=== PATIENT | male | born 1950 | race Caucasian/White ===

== ENCOUNTER 2020-02-12 14:06 | Outpatient (REF) | payer MEDICARE, SELFPAY ==
[2020-02-12 17:09] LABS: Prostate Specific Antigen < 0.05 ng/mL (<0.05-4.0)
== END 2020-02-12 14:07 | disposition home or self-care (01) ==
LOC: HO.HMGCLDS 14:06
PROVIDERS: PCP Internal Medicine; Visit Provider Urology
DX: C61 Malignant neoplasm of prostate (principal)
CPT/HCPCS: 84153

== ENCOUNTER 2020-05-14 07:34 | Outpatient (REF) | payer MEDICARE, SELFPAY ==
[2020-05-14 12:11] LABS: Prostate Specific Antigen < 0.05 ng/mL (<0.05-4.0)
== END 2020-05-14 07:35 | disposition home or self-care (01) ==
LOC: HO.HMGCLDS 07:34
PROVIDERS: PCP Internal Medicine; Visit Provider Urology
DX: C61 Malignant neoplasm of prostate (principal); Z12.5 Encounter for screening for malignant neoplasm of prostate
CPT/HCPCS: 36415; 84153

== ENCOUNTER → 2020-05-16 14:36 | Outpatient (BNVA) | payer MEDICARE, SELFPAY | PROVIDERS: PCP Internal Medicine; Visit Provider Urology | DX: C61 Malignant neoplasm of prostate (principal); R97.20 Elevated prostate specific antigen [PSA] | CPT/HCPCS: 96402; 99212; J9217 ==

== ENCOUNTER 2020-10-03 09:59 | Outpatient (REF) | payer MEDICARE, SELFPAY ==
[2020-10-03 12:18] LABS: Prostate Specific Antigen 0.99 ng/mL (<0.05-4.0)
[2020-10-04 09:01] LABS: Lyme Abs Screen <0.90 index
== END 2020-10-03 10:00 | disposition home or self-care (01) ==
LOC: HO.HMGCLDS 09:59
PROVIDERS: PCP Internal Medicine; Visit Provider Urology
DX: T14.8XXA Other injury of unspecified body region, initial encounter (principal); R97.20 Elevated prostate specific antigen [PSA]; C61 Malignant neoplasm of prostate; Z12.5 Encounter for screening for malignant neoplasm of prostate; W57.XXXA Bitten or stung by nonvenomous insect and other nonvenomous arthropods, initial encounter; Y93.9 Activity, unspecified; Y92.9 Unspecified place or not applicable; Y99.9 Unspecified external cause status
CPT/HCPCS: 36415; 84153; 86617; 86618

== ENCOUNTER → 2020-10-09 13:39 | Outpatient (BNVA) | payer MEDICARE, SELFPAY | PROVIDERS: PCP Internal Medicine; Visit Provider Urology | DX: C61 Malignant neoplasm of prostate (principal) | CPT/HCPCS: 99212 ==

== ENCOUNTER 2021-02-09 08:23 | Outpatient (REF) | payer MEDICARE, SELFPAY ==
[2021-02-09 11:59] LABS: PSA,Total (Free>4and<10) 0.26 ng/mL (0.00-4.00)
== END 2021-02-09 08:24 | disposition home or self-care (01) ==
LOC: HO.HMGCLDS 08:23
PROVIDERS: PCP Internal Medicine; Visit Provider Urology
DX: Z12.5 Encounter for screening for malignant neoplasm of prostate (principal); C61 Malignant neoplasm of prostate
CPT/HCPCS: 36415; 84153

== ENCOUNTER → 2021-02-12 09:12 | Outpatient (BNVA) | payer MEDICARE, SELFPAY | PROVIDERS: Visit Provider Urology | DX: C61 Malignant neoplasm of prostate (principal) | CPT/HCPCS: 96402; 99212; J9217 ==

== ENCOUNTER 2021-03-05 11:34 | Outpatient (REF) | payer MEDICARE, SELFPAY ==
[2021-03-05 11:41] VITALS: BP 123/81; PULSE 83; RESP 16; TEMP 36; O2SAT 95
[2021-03-05 11:42] VITALS: BMI 26.4
[2021-03-05 12:39] VITALS: BP 117/69; PULSE 77; RESP 16; O2SAT 97
--- NOTE | 2021-03-05 13:05 | W.PM.OPN ---
Operative Note Operative Note Date of Service: 03/05/21 Narrative: Preoperative diagnosis: Prostate cancer Postoperative diagnosis: Prostate cancer Procedure: 1. Transrectal ultrasound-guided pudendal nerve block 2. Transrectal ultrasound-guided gold seed placement Surgeon: Dr. Trip Grant Anesthetic: Local Indications for procedure: Prostate Cancer Procedure: After informed consent was verified, the patient was brought into the procedure area and lay left-hand side down on the table. Patient identity confirmed. Perioperative antibiotics confirmed. Gel was placed per rectum Ultrasound probe was placed per rectum A ultrasound-guided pudendal nerve block was performed using 10 cc of 1% lidocaine. 8 cc was placed at the base and 2 cc of the apex. 3 gold seed markers placed. 2 on the right, 1 on the left. The purpose is for triangulation. He tolerated the procedure well. Was able to ambulate to bathroom after 5 minutes. Printed instructions regarding antibiotic use and common side effects such as low-grade temperature and bleeding were given
== END 2021-03-05 11:35 | disposition home or self-care (01) ==
LOC: HO.MS 11:34
PROVIDERS: PCP Internal Medicine; Visit Provider Urology
PROC: (CPT 55876; principal; 2021-03-05 12:00)
DX: C61 Malignant neoplasm of prostate (principal)
CPT/HCPCS: 55876; 76942; A4648

== ENCOUNTER → 2021-07-30 08:47 | Outpatient (BNVA) | payer MEDICARE, SELFPAY | PROVIDERS: PCP Internal Medicine; Visit Provider Urology | DX: C61 Malignant neoplasm of prostate (principal) | CPT/HCPCS: Q3014 ==

== ENCOUNTER → 2021-08-21 09:51 | Outpatient (BNVA) | payer MEDICARE, SELFPAY | PROVIDERS: PCP Internal Medicine; Visit Provider Urology | DX: C61 Malignant neoplasm of prostate (principal) | CPT/HCPCS: 96402; J9217 ==

== ENCOUNTER 2021-12-29 13:11 | Outpatient (REF) | payer MEDICARE, SELFPAY ==
[2021-12-29 15:30] LABS: Prostate Specific Antigen < 0.05 ng/mL (<0.05-4.0)
[2022-01-03 00:17] LABS: Testosterone, Total 13 ng/dL (250-1100)
== END 2021-12-29 13:12 | disposition home or self-care (01) ==
LOC: HO.HMGCLDS 13:11
PROVIDERS: PCP Internal Medicine; Visit Provider Urology
DX: Z12.5 Encounter for screening for malignant neoplasm of prostate (principal); C61 Malignant neoplasm of prostate; N13.8 Other obstructive and reflux uropathy; N40.1 Benign prostatic hyperplasia with lower urinary tract symptoms
CPT/HCPCS: 36415; 84153; 84403

== ENCOUNTER → 2022-01-01 10:23 | Outpatient (BNVA) | payer MEDICARE, SELFPAY | PROVIDERS: PCP Internal Medicine; Visit Provider Urology | DX: C61 Malignant neoplasm of prostate (principal) | CPT/HCPCS: 99212 ==

== ENCOUNTER 2022-03-10 08:11 | Outpatient (REF) | payer MEDICARE, SELFPAY ==
[2022-03-10 12:50] LABS: Prostate Specific Antigen < 0.05 ng/mL (<0.05-4.0)
[2022-03-14 13:17] LABS: Testosterone, Total 15 ng/dL (250-1100)
== END 2022-03-10 08:12 | disposition home or self-care (01) ==
LOC: HO.HMGCLDS 08:11
PROVIDERS: PCP Internal Medicine; Visit Provider Urology
DX: Z12.5 Encounter for screening for malignant neoplasm of prostate (principal); C61 Malignant neoplasm of prostate; N40.1 Benign prostatic hyperplasia with lower urinary tract symptoms; N13.8 Other obstructive and reflux uropathy
CPT/HCPCS: 36415; 84153; 84403

== ENCOUNTER → 2022-03-16 10:06 | Outpatient (BNVA) | payer MEDICARE, SELFPAY | PROVIDERS: PCP Internal Medicine; Visit Provider Urology | DX: C61 Malignant neoplasm of prostate (principal) | CPT/HCPCS: 96402; 99212; J9217 ==

== ENCOUNTER 2022-06-14 14:41 | Outpatient (REF) | payer MEDICARE, SELFPAY ==
[2022-06-14 17:26] LABS: Prostate Specific Antigen < 0.10 ng/mL (<0.05-4.0)
[2022-06-20 12:39] LABS: Testosterone, Total 14 ng/dL (250-1100)
== END 2022-06-14 14:42 | disposition home or self-care (01) ==
LOC: HO.HMGCLDS 14:41
PROVIDERS: PCP Internal Medicine; Visit Provider Urology
DX: Z12.5 Encounter for screening for malignant neoplasm of prostate (principal); C61 Malignant neoplasm of prostate
CPT/HCPCS: 36415; 84153; 84403

== ENCOUNTER 2022-08-13 10:42 | Outpatient (REF) | payer MEDICARE, SELFPAY ==
[2022-08-13 12:38] LABS: PSA,Total (Free>4and<10) < 0.10 ng/mL (0.00-4.00)
== END 2022-08-13 10:43 | disposition home or self-care (01) ==
LOC: HO.HMGCLDS 10:42
PROVIDERS: PCP Internal Medicine; Visit Provider Urology
DX: Z12.5 Encounter for screening for malignant neoplasm of prostate (principal); C61 Malignant neoplasm of prostate
CPT/HCPCS: 36415; 84153; 84402; 84403

== ENCOUNTER → 2022-08-17 13:46 | Outpatient (BNVA) | payer MEDICARE, SELFPAY | PROVIDERS: PCP Internal Medicine; Visit Provider Urology | DX: C61 Malignant neoplasm of prostate (principal) | CPT/HCPCS: 99212 ==

== ENCOUNTER 2022-12-15 13:58 | Outpatient (REF) | payer MEDICARE, SELFPAY ==
[2022-12-15 17:24] LABS: Prostate Specific Antigen < 0.10 ng/mL (<0.05-4.0)
[2022-12-21 09:58] LABS: Testosterone, Total 12 ng/dL (250-1100)
== END 2022-12-15 13:59 | disposition home or self-care (01) ==
LOC: HO.HMGCLDS 13:58
PROVIDERS: PCP Internal Medicine; Visit Provider Urology
DX: Z12.5 Encounter for screening for malignant neoplasm of prostate (principal); C61 Malignant neoplasm of prostate
CPT/HCPCS: 36415; 84153; 84403

== ENCOUNTER 2022-12-22 13:43 | Outpatient (AMB) | payer MEDICARE, SELFPAY ==
--- NOTE | 2022-12-22 13:59 | MHC.OFFVIS ---
Intake Intake Visit Reasons: 4M PSA/Testo(pending) Intake Note: Patient is present for Follow Up Labs Urology Med:Finasteride Antibiotic Allergy: None Blood Thinner: None Pharmacy: [facility] Allergies No Known Allergies [No Known Allergies*] Allergy (Verified 12/22/22 14:03) Medication List - Last Reconciled 12/22/22 by Trip Grant MD atorvastatin 40 mg PO DAILY finasteride 5 mg PO DAILY 90 days HPI HPI Comments History of Present Illness Details Alexis is a pleasant male. He is a patient of Dr. Kelley. He is seen for the following urologic conditions -prostate cancer Four month update Labs stable Continue surveillance Remain on finasteride until late 2022 PSA 12/28 <0.1, 08/29 <0.1 T 14, 12/29 <0.1 T 23 Prostate cancer diagnosed 2018 - high risk disease - GnRH 02/11/21 - EXBRT completed June 2021 18 month GnRH last 03/[address] Beck 2018 Initial therapy had been hormone therapy with consideration for radiation Therapy had been delayed secondary to COVID Pathology - Multiple Cores positive 10/12 cores - Gl 4+5 with perineural invasion - Gl 9 - 4 cores - total cores 360/1200 Staging - completed with [facility] PSA 11/25 < 0.1, 09/26 1.0, 01/27 .26 Definitive therapy - External beam radiation with [facility] - finish 06/30 [facility] Medical History Elevated PSA High cholesterol Prostate cancer Surgical History History of surgery Review of Systems Const Denies chills and Denies fever(s) Card Reports no additional complaints and Denies syncope Resp Denies cough GI Denies abdominal pain and Denies heartburn Reports as per HPI and Denies change in libido Neuro Denies syncope Psych Denies change in libido Endo Denies change in libido Physical Exam Const General: cooperative, healthy appearing, comfortable and no acute distress Orientation/consciousness: patient oriented x3 HEENT Face and sinus: Yes normal facial exam Mouth: moist mucous membranes Neck Neck: Yes normal visual inspection, Yes full ROM and Yes trachea midline Chest Chest palpation & inspection: normal inspection of the chest Resp Effort & Inspection: normal respiratory effort, able to speak in complete sentences and no respiratory distress GI Inspection: Yes normal to inspection Back/Spine/Pelvis Cervical Spine: normal cervical lordosis Thoracic/Lumbar Spine: thoracic and lumbar spine normal to inspection Skin General skin exam: no rashes or lesions noted Neuro General: patient oriented x3, gait normal, tone normal and moves all extremities Extrem General: Yes normal to inspection and Yes capillary refill normal Assessment & Plan Assessment & Plan (1) Prostate cancer: Comment: High-grade localized disease 2019 External beam radiation completed June 2021 Code(s): C61 - Malignant neoplasm of prostate Plan Four month follow-up tele lab work Orders: Orders Testosterone, Total 4 Months C61 - Malignant neoplasm of prostate Prostate Specific Antigen 4 Months C61 - Malignant neoplasm of prostate Patient Instructions: Imaging studies, laboratory and physical exam results were discussed and reviewed in detail. No major barriers to patient understanding were identified. An opportunity to ask questions regarding the treatment plan was provided. All questions were answered. The patient expressed understanding and agreement with the above treatment plan. The patient is aware they should contact our office by phone for worsening of their current condition or the appearance of new urologic symptoms. Compliance is encouraged with any medications and followup testing that is ordered. It is a privilege to participate in the urologic care of your patient. If you have any questions or concerns regarding treatment for the above conditions, or other urologic issues, please do not hesitate to contact me. The office telephone contact is [phone]. This note is constructed using voice recognition software. While every effort has been made to ensure accuracy general surgery physician assistant errors may have been included. Yours sincerely, Dr Trip Grant MD, [facility] - Urology Providers of Expert, Compassionate Care for the Genitourinary System Coding Level of Care Code Est Pt Level 3 (41289) Diagnoses Prostate cancer C61
== END 2022-12-22 14:24 | disposition home or self-care (01) ==
PROVIDERS: Visit Provider Urology
DX: C61 Malignant neoplasm of prostate (principal)
CPT/HCPCS: 99213

== ENCOUNTER → 2022-12-22 13:43 | Outpatient (BNVA) | payer MEDICARE, SELFPAY | PROVIDERS: Visit Provider Urology | DX: C61 Malignant neoplasm of prostate (principal) | CPT/HCPCS: 99212 ==

== ENCOUNTER 2023-04-11 14:36 | Outpatient (REF) | payer MEDICARE, SELFPAY ==
[2023-04-11 16:36] LABS: Prostate Specific Antigen < 0.10 ng/mL (<0.05-4.0)
[2023-04-15 14:28] LABS: Testosterone, Total 19 ng/dL (250-1100)
== END 2023-04-11 14:37 | disposition home or self-care (01) ==
LOC: HO.HMGCLDS 14:36
PROVIDERS: PCP Internal Medicine; Visit Provider Urology
DX: Z12.5 Encounter for screening for malignant neoplasm of prostate (principal); C61 Malignant neoplasm of prostate
CPT/HCPCS: 36415; 84153; 84403

== ENCOUNTER 2023-04-19 15:35 | Outpatient (AMB) | payer MEDICARE, SELFPAY ==
--- NOTE | 2023-04-19 15:35 | A.OFFVIS_ITS ---
Intake Intake Visit Reasons: 4M Labs(set) Intake Note: Patient is Present for Telephone Follow Up For Urology Med: Finasteride Antibiotic Allergy: None Blood Thinner: None Allergies No Known Allergies [No Known Allergies*] Allergy (Verified 04/19/23 15:37) Medication List - Last Reconciled 04/19/23 by Trip Grant MD atorvastatin 40 mg PO DAILY finasteride 5 mg PO DAILY 30 days HPI HPI Comments History of Present Illness Details Alexis is a pleasant male. He is a patient of Dr. Kelley. He is seen for the following urologic conditions -prostate cancer Telemedicine Evaluation 15 min Consultation [employer] Curt Video attempted Four month update Labs stable Continue surveillance Finasteride can be stopped 4 month follow-up PSA 12/28 <0.1, 08/29 <0.1 T 14, 12/29 <0.1 T 23, 04/30 <0.1 T 19 Prostate cancer diagnosed 2018 - high risk disease - GnRH 02/11/21 - EXBRT completed June 2021 18 month GnRH last 03/[address] Beck 2018 Initial therapy had been hormone therapy with consideration for radiation Therapy had been delayed secondary to COVID Pathology - Multiple Cores positive 02/17 cores - Gl 4+5 with perineural invasion - Gl 9 - 4 cores - total cores 360/1200 Staging - completed with [facility] PSA 11/25 < 0.1, 09/26 1.0, 01/27 .26 Definitive therapy - External beam radiation with [facility] - finish 06/30 [facility] Medical History High cholesterol Prostate cancer Elevated PSA Surgical History History of surgery Review of Systems Const All systems reviewed & are unremarkable except as noted in HPI and below Reports no additional complaints Resp Reports no additional complaints GI Reports no additional complaints Reports as per HPI Musc Reports no additional complaints Physical Exam Telemedicine evaluation Appropriate responses Regular breathing rate and rhythm HEENT Head: Yes normal to inspection Ears: hearing grossly normal bilaterally Eyes General: appearance normal, both eyes and all related structures Neck Neck: Yes normal visual inspection Chest Chest palpation & inspection: normal inspection of the chest Resp Effort & Inspection: normal respiratory effort and able to speak in complete sentences Assessment & Plan Assessment & Plan (1) Prostate cancer: Comment: High-grade localized disease 2019 External beam radiation completed June 2021 Code(s): C61 - Malignant neoplasm of prostate Plan Start finasteride Four month follow-up PSA and testosterone Orders: Orders Prostate Specific Antigen 4 Months C61 - Malignant neoplasm of prostate Testosterone, Total 4 Months C61 - Malignant neoplasm of prostate Medications: Discontinued finasteride Discontinued Reason: Doctor's Order 5 mg PO DAILY 30 tabs 0RF 30 days C61 - Malignant neoplasm of prostate, N13.8 - Other obstructive and reflux uropathy, N40.1 - Benign prostatic hyperplasia with lower urinary tract symptoms, R33.9 - Retention of urine, unspecified Patient Instructions: Imaging studies, laboratory and physical exam results were discussed and reviewed in detail. No major barriers to patient understanding were identified. An opportunity to ask questions regarding the treatment plan was provided. All questions were answered. The patient expressed understanding and agreement with the above treatment plan. The patient is aware they should contact our office by phone for worsening of their current condition or the appearance of new urologic symptoms. Compliance is encouraged with any medications and followup testing that is ordered. It is a privilege to participate in the urologic care of your patient. If you have any questions or concerns regarding treatment for the above conditions, or other urologic issues, please do not hesitate to contact me. The office telephone contact is [phone]. This note is constructed using voice recognition software. While every effort has been made to ensure accuracy medical technical writer errors may have been included. Yours sincerely, Dr Trip Grant MD, [facility] - Urology Providers of Expert, Compassionate Care for the Genitourinary System Telehealth Telehealth Location of provider rendering services: practice address Location of patient: address on file Patient Identification confirmed using: Name, : Yes Telehealth method: video Patient verbally consented to treatment: Yes Patient verbally consented to billing insurance company: Yes Patient informed of any privacy concerns related to visit: Yes Coding Level of Care Code Tele Est Pt Level 3 (07189) Diagnoses Prostate cancer C61
== END 2023-04-19 16:35 | disposition home or self-care (01) ==
LOC: HO.HUSH 15:35
PROVIDERS: PCP Internal Medicine; Visit Provider Urology
DX: C61 Malignant neoplasm of prostate (principal)
CPT/HCPCS: 99213

== ENCOUNTER → 2023-04-19 15:35 | Outpatient (BNVA) | payer MEDICARE, SELFPAY | PROVIDERS: PCP Internal Medicine; Visit Provider Urology ==

== ENCOUNTER 2023-08-05 08:57 | Outpatient (REF) | payer MEDICARE, SELFPAY ==
[2023-08-05 11:17] LABS: Prostate Specific Antigen < 0.10 ng/mL (<0.05-4.0)
[2023-08-10 13:09] LABS: Testosterone, Total 62 ng/dL (250-1100)
== END 2023-08-05 08:58 | disposition home or self-care (01) ==
LOC: HO.HMGCLDS 08:57
PROVIDERS: PCP Internal Medicine; Visit Provider Urology
DX: C61 Malignant neoplasm of prostate (principal); Z12.5 Encounter for screening for malignant neoplasm of prostate
CPT/HCPCS: 36415; 84153; 84403

== ENCOUNTER 2023-08-16 13:56 | Outpatient (AMB) | payer MEDICARE, SELFPAY ==
--- NOTE | 2023-08-16 13:57 | A.OFFVIS_ITS ---
Intake Intake Visit Reasons: 4M PSA/Testosterone(set)Confirmed Intake Note: Patient is Present for Telephone Follow Up Urology Med: None Antibiotic Allergy:None Blood Thinner:None Allergies No Known Allergies [No Known Allergies*] Allergy (Verified 04/19/23 15:37) Medication List - Last Reconciled 08/16/23 by Trip Grant MD atorvastatin 40 mg PO DAILY HPI HPI Comments History of Present Illness Details Alexis is a pleasant male. He is a patient of Dr. Kelley. He is seen for the following urologic conditions -prostate cancer Telemedicine Evaluation 15 min Consultation [employer] Curt Video attempted Four month update Labs stable Continue surveillance PSA 12/28 <0.1, 08/29 <0.1 T 14, 12/29 <0.1 T 23, 04/30 <0.1 T 19, 07/30 <0.1 T 62 Six-month follow-up lab work Prostate cancer diagnosed 2018 - high risk disease - GnRH 02/11/21 - EXBRT completed June 2021 18 month GnRH last 03/[address] Beck 2018 Initial therapy had been hormone therapy with consideration for radiation Therapy had been delayed secondary to COVID Pathology - Multiple Cores positive 02/17 cores - Gl 4+5 with perineural invasion - Gl 9 - 4 cores - total cores 360/1200 Staging - completed with [facility] PSA 11/25 < 0.1, 09/26 1.0, 01/27 .26 Definitive therapy - External beam radiation with [facility] - finish 06/30 [facility] Medical History High cholesterol Prostate cancer Elevated PSA Surgical History History of surgery Review of Systems Const All systems reviewed & are unremarkable except as noted in HPI and below Reports no additional complaints Resp Reports no additional complaints GI Reports no additional complaints Reports as per HPI Musc Reports no additional complaints Physical Exam Telemedicine evaluation Appropriate responses Regular breathing rate and rhythm HEENT Head: Yes normal to inspection Ears: hearing grossly normal bilaterally Eyes General: appearance normal, both eyes and all related structures Neck Neck: Yes normal visual inspection Chest Chest palpation & inspection: normal inspection of the chest Resp Effort & Inspection: normal respiratory effort and able to speak in complete sentences Assessment & Plan Assessment & Plan (1) Prostate cancer: Comment: High-grade localized disease 2019 External beam radiation completed June 2021 Code(s): C61 - Malignant neoplasm of prostate Plan Continue good response Six-month follow-up lab work Orders: Orders Testosterone, Total 6 Months C61 - Malignant neoplasm of prostate Prostate Specific Antigen 6 Months C61 - Malignant neoplasm of prostate Patient Instructions: Imaging studies, laboratory and physical exam results were discussed and reviewed in detail. No major barriers to patient understanding were identified. An opportunity to ask questions regarding the treatment plan was provided. All questions were answered. The patient expressed understanding and agreement with the above treatment plan. The patient is aware they should contact our office by phone for worsening of their current condition or the appearance of new urologic symptoms. Compliance is encouraged with any medications and followup testing that is ordered. It is a privilege to participate in the urologic care of your patient. If you have any questions or concerns regarding treatment for the above conditions, or other urologic issues, please do not hesitate to contact me. The office telephone contact is [phone]. This note is constructed using voice recognition software. While every effort has been made to ensure accuracy neurology epilepsy physician errors may have been included. Yours sincerely, Dr Trip Grant MD, [facility] - Urology Providers of Expert, Compassionate Care for the Genitourinary System Telehealth Telehealth Location of provider rendering services: practice address Location of patient: address on file Patient Identification confirmed using: Name, : Yes Telehealth method: video Patient verbally consented to treatment: Yes Patient verbally consented to billing insurance company: Yes Patient informed of any privacy concerns related to visit: Yes Coding Level of Care Code Tele Est Pt Level 3 (68585) Diagnoses Prostate cancer C61
== END 2023-08-16 14:18 | disposition home or self-care (01) ==
LOC: HO.HUSH 13:56
PROVIDERS: PCP Internal Medicine; Visit Provider Urology
DX: C61 Malignant neoplasm of prostate (principal)
CPT/HCPCS: 99213

== ENCOUNTER → 2023-08-16 13:56 | Outpatient (BNVA) | payer MEDICARE, SELFPAY | PROVIDERS: PCP Internal Medicine; Visit Provider Urology ==

== ENCOUNTER 2024-02-08 09:14 | Outpatient (REF) | payer MEDICARE, SELFPAY ==
[2024-02-08 11:02] LABS: Prostate Specific Antigen < 0.10 ng/mL (<0.05-4.0)
[2024-02-13 17:03] LABS: Testosterone, Total 71 ng/dL (250-1100)
== END 2024-02-08 09:15 | disposition home or self-care (01) ==
LOC: HO.HMGCLDS 09:14
PROVIDERS: PCP Internal Medicine; Visit Provider Urology
DX: C61 Malignant neoplasm of prostate (principal); Z12.5 Encounter for screening for malignant neoplasm of prostate
CPT/HCPCS: 36415; 84153; 84403

== ENCOUNTER 2024-02-14 13:27 | Outpatient (AMB) | payer MEDICARE, SELFPAY ==
--- NOTE | 2024-02-14 13:29 | MHC.OFFVIS ---
Intake Visit Reasons: 6M PSA/Testosterone(set) Intake Note: Patient is Present for Follow Up Labs Urology Medication: None Antibiotic Allergies: None Blood Thinners: None Recent LABS: 02/08/2024- PSA- <0.10 Testosterone- 71 Electric Shipyard Operator Required: No Accompanied by: Self / Same As Patient Allergies No Known Allergies [No Known Allergies*] Allergy (Verified 02/14/24 13:34) HPI Comments Details: Alexis is a pleasant male. He is a patient of Dr. Kelley. He is seen for the following urologic conditions -prostate cancer Six-month follow-up Labs stable Continue surveillance PSA 12/28 <0.1, 08/29 <0.1 T 14, 12/29 <0.1 T 23, 04/30 <0.1 T 19, 07/30 <0.1 T 62, 03/01 <0.1 T 71 Six-month follow-up lab work Prostate cancer diagnosed 2018 - high risk disease - GnRH 02/11/21 - EXBRT completed June 2021 18 month GnRH last 03/[address] Beck 2018 Initial therapy had been hormone therapy with consideration for radiation Therapy had been delayed secondary to COVID Pathology - Multiple Cores positive 02/17 cores - Gl 4+5 with perineural invasion - Gl 9 - 4 cores - total cores 360/1200 Staging - completed with [facility] PSA 11/25 < 0.1, 09/26 1.0, 01/27 .26 Definitive therapy - External beam radiation with [facility] - finish 06/30 [facility] Medical History High cholesterol Prostate cancer Elevated PSA Surgical History History of surgery Review of Systems Const Denies chills and Denies fever(s) Card Reports no additional complaints and Denies syncope Resp Denies cough GI Denies abdominal pain and Denies heartburn Reports as per HPI and Denies change in libido Neuro Denies syncope Psych Denies change in libido Endo Denies change in libido Physical Exam Const General: cooperative, healthy appearing, comfortable and no acute distress Orientation/consciousness: patient oriented x3 HEENT Face and sinus: Yes normal facial exam Mouth: moist mucous membranes Neck Neck: Yes normal visual inspection, Yes full ROM and Yes trachea midline Chest Chest palpation & inspection: normal inspection of the chest Resp Effort & Inspection: normal respiratory effort, able to speak in complete sentences and no respiratory distress GI Inspection: Yes normal to inspection Back/Spine/Pelvis Cervical Spine: normal cervical lordosis Thoracic/Lumbar Spine: thoracic and lumbar spine normal to inspection Skin General skin exam: no rashes or lesions noted Neuro General: patient oriented x3, gait normal, tone normal and moves all extremities Extrem General: Yes normal to inspection and Yes capillary refill normal Assessment & Plan Assessment & Plan (1) Erectile dysfunction: Code(s): N52.9 - Male erectile dysfunction, unspecified Category: Medical (2) Prostate cancer: Comment: High-grade localized disease 2019 External beam radiation completed June 2021 Code(s): C61 - Malignant neoplasm of prostate Category: Medical Plan Six-month follow-up lab work Orders: Orders Prostate Specific Antigen 6 Months C61 - Malignant neoplasm of prostate Testosterone, Total 6 Months C61 - Malignant neoplasm of prostate Patient Instructions: Imaging studies, laboratory and physical exam results were discussed and reviewed in detail. No major barriers to patient understanding were identified. An opportunity to ask questions regarding the treatment plan was provided. All questions were answered. The patient expressed understanding and agreement with the above treatment plan. The patient is aware they should contact our office by phone for worsening of their current condition or the appearance of new urologic symptoms. Compliance is encouraged with any medications and followup testing that is ordered. It is a privilege to participate in the urologic care of your patient. If you have any questions or concerns regarding treatment for the above conditions, or other urologic issues, please do not hesitate to contact me. The office telephone contact is [phone]. This note is constructed using voice recognition software. While every effort has been made to ensure accuracy recreation therapist errors may have been included. Yours sincerely, Dr Trip Grant MD, [facility] - Urology Providers of Expert, Compassionate Care for the Genitourinary System Coding Level of Care Code Est Pt Level 3 (68630) Diagnoses Erectile dysfunction N52.9 Prostate cancer C61
== END 2024-02-14 14:28 | disposition home or self-care (01) ==
PROVIDERS: PCP Internal Medicine; Visit Provider Urology
DX: N52.9 Male erectile dysfunction, unspecified (principal); C61 Malignant neoplasm of prostate
CPT/HCPCS: 99213

== ENCOUNTER → 2024-02-14 13:27 | Outpatient (BNVA) | payer MEDICARE, SELFPAY | PROVIDERS: PCP Internal Medicine; Visit Provider Urology | DX: C61 Malignant neoplasm of prostate (principal) | CPT/HCPCS: 99212 ==

== ENCOUNTER 2024-08-06 14:09 | Outpatient (REF) | payer MEDICARE, SELFPAY ==
[2024-08-06 17:24] LABS: Prostate Specific Antigen < 0.10 ng/mL (<0.05-4.0)
[2024-08-10 17:58] LABS: Testosterone, Total 73 ng/dL (250-1100)
== END 2024-08-06 14:10 | disposition home or self-care (01) ==
LOC: HO.HMGCLDS 14:09
PROVIDERS: Visit Provider Urology
DX: C61 Malignant neoplasm of prostate (principal); Z12.5 Encounter for screening for malignant neoplasm of prostate
CPT/HCPCS: 36415; 84153; 84403

== ENCOUNTER 2024-08-15 08:27 | Outpatient (AMB) | payer MEDICARE, SELFPAY ==
--- NOTE | 2024-08-15 08:29 | A.OFFVIS_ITS ---
Intake Visit Reasons: 6M/LABS Intake Note: Patient is present for 6M/LABS Urology Medication:TADALAFIL Antibiotic Allergy:NONE Blood Thinner:NONE Kerfer Machine Operator Required: No Allergies No Known Allergies [No Known Allergies*] Allergy (Verified 08/15/24 08:30) HPI Comments Details: Alexis is a pleasant male. He is a patient of Dr. Kelley. He is seen for the following urologic conditions -prostate cancer Six-month follow-up Labs stable Continue surveillance Doing well Minimal urgency and frequency PSA 12/28 <0.1, 08/29 <0.1 T 14, 12/29 <0.1 T 23, 04/30 <0.1 T 19, 07/30 <0.1 T 62, 03/01 <0.1 T 71, 07/31 <0.1 73 Continue six-month interval evaluation till June 2026 Prostate cancer diagnosed 2018 - high risk disease - GnRH 02/11/21 - EXBRT completed June 2021 18 month GnRH last 03/[address] Beck 2018 Initial therapy had been hormone therapy with consideration for radiation Therapy had been delayed secondary to COVID Pathology - Multiple Cores positive 02/17 cores - Gl 4+5 with perineural invasion - Gl 9 - 4 cores - total cores 360/1200 Staging - completed with [facility] PSA 11/25 < 0.1, 09/26 1.0, 01/27 .26 Definitive therapy - External beam radiation with [facility] - finish 06/30 [facility] Medical History High cholesterol Prostate cancer Elevated PSA Surgical History History of surgery Review of Systems Const Denies chills and Denies fever(s) Card Reports no additional complaints and Denies syncope Resp Denies cough GI Denies abdominal pain and Denies heartburn Reports as per HPI and Denies change in libido Neuro Denies syncope Psych Denies change in libido Endo Denies change in libido Physical Exam Const General: cooperative, healthy appearing, comfortable and no acute distress Orientation/consciousness: patient oriented x3 HEENT Face and sinus: Yes normal facial exam Mouth: moist mucous membranes Neck Neck: Yes normal visual inspection, Yes full ROM and Yes trachea midline Chest Chest palpation & inspection: normal inspection of the chest Resp Effort & Inspection: normal respiratory effort, able to speak in complete sentences and no respiratory distress GI Inspection: Yes normal to inspection Back/Spine/Pelvis Cervical Spine: normal cervical lordosis Thoracic/Lumbar Spine: thoracic and lumbar spine normal to inspection Skin General skin exam: no rashes or lesions noted Neuro General: patient oriented x3, gait normal, tone normal and moves all extremities Extrem General: Yes normal to inspection and Yes capillary refill normal Assessment & Plan Assessment & Plan (1) Prostate cancer: Comment: High-grade localized disease 2019 External beam radiation completed June 2021 Code(s): C61 - Malignant neoplasm of prostate Category: Medical (2) Erectile dysfunction: Code(s): N52.9 - Male erectile dysfunction, unspecified Category: Medical Plan Continue interval surveillance Patient Instructions: This note is constructed using voice recognition software. While every effort has been made to ensure accuracy crop or livestock tenant farmer errors may have been included. Imaging studies, laboratory and physical exam results were discussed and reviewed in detail. No major barriers to patient understanding were identified. An opportunity to ask questions regarding the treatment plan was provided. All questions were answered. The patient expressed understanding and agreement with the above treatment plan. The patient is aware they should contact our office by phone for worsening of their current condition or the appearance of new urologic symptoms. Compliance i s encouraged with any medications and followup testing that is ordered. It is a privilege to participate in the urologic care of your patient. If you have any questions or concerns regarding treatment for the above conditions, or other urologic issues, please do not hesitate to contact me. The office telephone contact is [phone]. Sincerely, Dr Trip Grant MD, [facility] - Urology Compassionate Specialist Care for the Genitourinary System Coding Level of Care Code Est Pt Level 3 (27615) Complex EM visit Add On G2211 Diagnoses Prostate cancer C61 Erectile dysfunction N52.9
== END 2024-08-15 08:53 | disposition home or self-care (01) ==
LOC: HO.HUSH 08:28
PROVIDERS: PCP Internal Medicine; Visit Provider Urology
DX: C61 Malignant neoplasm of prostate (principal); N52.9 Male erectile dysfunction, unspecified
CPT/HCPCS: 99213; G2211

== ENCOUNTER → 2024-08-15 08:27 | Outpatient (BNVA) | payer MEDICARE, SELFPAY | PROVIDERS: PCP Internal Medicine; Visit Provider Urology | DX: Z13.89 Encounter for screening for other disorder (principal) ==

== ENCOUNTER 2025-02-12 07:22 | Outpatient (REF) | payer MEDICARE, SELFPAY ==
--- OUTSIDE RECORDS SUMMARY | 2025-02-12 07:26 | XMS_ITS | Patient Health Record ---
Author Organization [facility] Address [address] [place] [address] Care Team Providers Care Treating Inspector Name Role Phone Warren (RETIRED) Tio ZHENG Primary Care Provide r Unavailable Ephraim Kaye Jr Unavailable Reason For Referral No Information Plan Of Treatment No Information Insurance Providers Payer Name Payer Address Payer Phone Subscriber Number Group Number Insured Name Patient Relationship to Insured Coverage Start Date Coverage End Date MEDICARE OF [employer] [address] [place] [address] [id number] CLARI STEWART Self - patient is the insured
[2025-02-12 10:57] LABS: Prostate Specific Antigen 0.12 ng/mL (<0.05-4.0)
== END 2025-02-12 07:23 | disposition home or self-care (01) ==
LOC: HO.HMGCLDS 07:22
PROVIDERS: Visit Provider Urology
DX: C61 Malignant neoplasm of prostate (principal); Z12.5 Encounter for screening for malignant neoplasm of prostate
CPT/HCPCS: 36415; 84153

== ENCOUNTER 2025-02-15 09:01 | Outpatient (AMB) | payer MEDICARE, SELFPAY ==
--- NOTE | 2025-02-15 09:10 | A.OFFVIS_ITS ---
Intake Visit Reasons: 6m/labs Intake Note: patient presents today for: 6mo follow up urology medications: tadalafil blood thinners: none Gravity Flow Irrigator Required: No Accompanied by: Self / Same As Patient Allergies No Known Allergies (No Known Allergies*) Allergy (Verified 02/15/25 09:11) HPI Comments Details: Alexis is a pleasant male. He is a patient of Dr. Kelley. He is seen for the following urologic conditions -prostate cancer - erectile dysfunction following radiation for prostate cancer Slight PSA rise Not unexpected given recovery of testosterone Trial daily tadalafil both 20 mg on demand for erectile issues PSA 12/28 <0.1, 08/29 <0.1 T 14, 12/29 <0.1 T 23, 04/30 <0.1 T 19, 07/30 <0.1 T 62, 03/01 <0.1 T 71, 07/31 <0.1 73, 03/02 0.12 Continue six-month interval evaluation till June 2026 Prostate cancer diagnosed 2018 - high risk disease - GnRH 02/11/21 - EXBRT completed June 2021 18 month GnRH last 03/[address] Beck 2018 Initial therapy had been hormone therapy with consideration for radiation Therapy had been delayed secondary to COVID Pathology - Multiple Cores positive 02/17 cores - Gl 4+5 with perineural invasion - Gl 9 - 4 cores - total cores 360/1200 Staging - completed with [facility] PSA 11/25 < 0.1, 09/26 1.0, 01/27 .26 Definitive therapy - External beam radiation with [facility] - finish 06/30 [facility] Medical History High cholesterol Prostate cancer Elevated PSA Surgical History History of surgery Review of Systems Const Denies chills and Denies fever(s) Card Reports no additional complaints and Denies syncope Resp Denies cough GI Denies abdominal pain and Denies heartburn Reports as per HPI and Denies change in libido Neuro Denies syncope Psych Denies change in libido Endo Denies change in libido Physical Exam Const General: cooperative, healthy appearing, comfortable and no acute distress Orientation/consciousness: patient oriented x3 HEENT Face and sinus: Yes normal facial exam Mouth: moist mucous membranes Neck Neck: Yes normal visual inspection, Yes full ROM and Yes trachea midline Chest Chest palpation & inspection: normal inspection of the chest Resp Effort & Inspection: normal respiratory effort, able to speak in complete sentences and no respiratory distress GI Inspection: Yes normal to inspection Back/Spine/Pelvis Cervical Spine: normal cervical lordosis Thoracic/Lumbar Spine: thoracic and lumbar spine normal to inspection Skin General skin exam: no rashes or lesions noted Neuro General: patient oriented x3, gait normal, tone normal and moves all extremities Extrem General: Yes normal to inspection and Yes capillary refill normal Assessment & Plan Assessment & Plan (1) Prostate cancer: Comment: High-grade localized disease 2019 External beam radiation completed June 2021 Code(s): C61 - Malignant neoplasm of prostate Category: Medical (2) Erectile dysfunction: Code(s): N52.9 - Male erectile dysfunction, unspecified Category: Medical Plan Trial tadalafil daily Six-month follow-up lab work Orders: Orders Testosterone, Total 5 Months C61 - Malignant neoplasm of prostate Prostate Specific Antigen 5 Months C61 - Malignant neoplasm of prostate Medications: New tadalafil Intended as daily medication 5 mg PO DAILY 90 tabs 1RF sexual activity 90 days N52.9 - Male erectile dysfunction, unspecified Refilled tadalafil On demand medication take 60 minutes before intended activity [id number] [facility] [id number] Member [id number] 20 mg PO ONCE PRN 30 tabs 0RF sexual activity 30 days N52.9 - Male erectile dysfunction, unspecified Patient Instructions: This note is constructed using voice recognition software. While every effort has been made to ensure accuracy automatic spreader operator errors may have been included. Imaging studies, laboratory and physical exam results were discussed and reviewed in detail. No major barriers to patient understanding were identified. An opportunity to ask questions regarding the treatment plan was provided. All questions were answered. The patient expressed understanding and agreement with the above treatment plan. The patient is aware they should contact our office by phone for worsening of their current condition or the appearance of new urologic symptoms. Compliance is encouraged with any medications and followup testing that is ordered. It is a privilege to participate in the urologic care of your patient. If you have any questions or concerns regarding treatment for the above conditions, or other urologic issues, please do not hesitate to contact me. The office telephone contact is [phone]. Sincerely, Dr Trip Grant MD, [facility] - Urology Compassionate Specialist Care for the Genitourinary System Coding Level of Care Code Est Pt Level 4 (81256) Complex EM visit Add On G2211 Diagnoses Prostate cancer C61 Erectile dysfunction N52.9
--- OUTSIDE RECORDS SUMMARY | 2025-02-15 09:26 | XMS_ITS | Patient Health Record ---
Author Organization [facility] Address [address] [place] [address] Care Team Providers Care Senior Research Executive Name Role Phone Warren (RETIRED) Tio ZHENG Primary Care Provide r Unavailable Ephraim Kaye Jr Unavailable Reason For Referral No Information Plan Of Treatment No Information Insurance Providers Payer Name Payer Address Payer Phone Subscriber Number Group Number Insured Name Patient Relationship to Insured Coverage Start Date Coverage End Date MEDICARE [place] [address] [place] [address] [phone] [id number] CLARI STEWART Self - patient is the insured
== END 2025-02-15 09:34 | disposition home or self-care (01) ==
PROVIDERS: PCP Internal Medicine; Visit Provider Urology
DX: C61 Malignant neoplasm of prostate (principal); N52.9 Male erectile dysfunction, unspecified
CPT/HCPCS: 99214; G2211

== ENCOUNTER → 2025-02-15 09:01 | Outpatient (BNVA) | payer MEDICARE, SELFPAY | PROVIDERS: PCP Internal Medicine; Visit Provider Urology | DX: C61 Malignant neoplasm of prostate (principal); N52.9 Male erectile dysfunction, unspecified | CPT/HCPCS: 99212 ==